=== PATIENT | female | born 1985 | race Caucasian/White ===

== ENCOUNTER 2023-10-29 05:42 | Emergency (ER) | payer OTHER ==
[~2023-10-29] VITALS: Ht 177.8 cm; Wt 81.6 kg
[2023-10-29 05:46] VITALS: BP 119/68; PULSE 56; RESP 18; TEMP 97; O2SAT 98
[2023-10-29 06:09] VITALS: O2SAT 99
[2023-10-29] MEDS: NACL 0.9% 1,000 ML IV ONE (06:25)
[2023-10-29] MEDS: KETOROLAC 30 MG/ML VIAL IM ONE (07:43)
[2023-10-29] MEDS ORDERED: IBUP-2213 PO (07:45)
[2023-10-29] MEDS: ACETAMINOPHEN 325 MG TAB PO ONE (07:52)
[2023-10-29 08:01] VITALS: BP 119/84; PULSE 66; RESP 12; TEMP 97; O2SAT 99
== END 2023-10-29 08:01 | disposition home or self-care (01) ==
LOC: MED 05:42
DX: S91.331A Puncture wound without foreign body, right foot, initial encounter (principal); S09.90XA Unspecified injury of head, initial encounter; Z79.899 Other long term (current) drug therapy; W18.30XA Fall on same level, unspecified, initial encounter; Y93.89 Activity, other specified; Y92.89 Other specified places as the place of occurrence of the external cause; Y99.8 Other external cause status
CPT/HCPCS: 70450; 73630; 93005; 96360; 99284; J7030